=== PATIENT | female | born 1950 | race Caucasian/White ===

== ENCOUNTER 2023-06-11 13:44 | Emergency (ER) | payer MEDICARE, SELFPAY ==
[2023-06-11 13:52] VITALS: BP 126/51; PULSE 78; RESP 16; TEMP 36.5; O2SAT 97
--- NOTE | 2023-06-11 15:15 | ED.FEMALEGU ---
HPI - Female Genitourinary General Chief complaint: Urogenital-Female Stated complaint: Urinary Problem Time Seen by Provider: 06/11/23 15:10 Source: patient, RN notes reviewed and old records reviewed Mode of arrival: ambulatory Limitations: no limitations History of Present Illness HPI Narrative: 73-year-old female who presents to [facility] with complaints of UTI symptoms for the past 3 days which incldes urinary burning, frequency,urgency suprapubic pressure. and voiding in small amounts.Patient reports that she has been taking Uristat for her symptoms. Patient denies anyfevers, chills or sweates denies any nausea or vomiting or diarrhea, Patient reports no concern for STD exposure or vaginal discharge. MD elicited complaint: UTI Onset (ago): day(s) (3) Location of symptoms: suprapubic and urethra Severity: moderate Quality of pain: other (pressure) Vaginal discharge: none Treatment prior to arrival: other (Uristat) Related Data Home Medications Medication Instructions Recorded Confirmed alprazolam 0.25 mg tablet 0.25 mg PO QHS PRN Anxiety 06/11/23 06/11/23 apixaban 5 mg tablet (Eliquis) 5 mg PO BID 06/11/23 06/11/23 ezetimibe 10 mg tablet 10 mg PO DAILY 06/11/23 06/11/23 famotidine 20 mg tablet 20 mg PO QHS 06/11/23 06/11/23 levothyroxine 75 mcg tablet 75 mcg PO DAILY 06/11/23 06/11/23 rosuvastatin 10 mg tablet 10 mg PO DAILY 06/11/23 06/11/23 sotalol 80 mg tablet 40 mg PO BID 06/11/23 06/11/23 Allergies Allergy/AdvReac Type Severity Reaction Status Date / Time Penicillins Allergy Intermediate Rash Verified 06/11/23 14:36 Review of Systems Review of Systems: CONSTITUTIONAL: Denies fever, chills, or sweats. CARDIOVASCULAR: Denies chest pain, palpitations, or edema. RESPIRATORY: Denies cough or dyspnea. GASTROINTESTINAL: Reports suprapubic abdominal pressure, no nausea, vomiting, or diarrhea. GENITOURINARY: Reports dysuria, frequency, urgency. Denies flank pain or hematuria. voiding small amounts SKIN: Denies rash or itching. MUSCULOSKELETAL: Denies back pain or myalgia. Denies CVA tenderness NEUROLOGIC: Denies headache All systems reviewed & are unremarkable except as noted in HPI and below PMFSH Past Medical History Medical History (Updated 06/13/23 @ 13:16 by Kellen Burns NP) Anxiety Atrial fibrillation Breast cancer left Radiation and Tamoxifen COVID-19 Surgical History Surgical History (Updated 06/13/23 @ 13:10 by Kellen Burns NP) H/O: hysterectomy History of cholecystectomy History of removal of both ovaries Hx of cataract removal with insertion of prosthetic lens bilateral S/P bilateral breast reduction Social History Social History (Updated 06/13/23 @ 13:06 by Kellen Burns NP) Smoking status: Never smoker Alcohol intake: current Alcohol use details: rare Substance use type: does not use Living arrangements: with family Gender identity (if verbalized by the patient): Female Comments At time of signature, agree with nursing past medical, surgical, social and family history. There is no relevant family history pertinent to the presenting complaint Exam Narrative: GENERAL: Well-appearing, well-nourished, and in no acute distress. HEAD: Normocephalic, atraumatic. NECK: Supple..no lymphadenopathy CHEST: Clear to auscultation. No respiratory distress.SAO2 97% on room air HEART: Regular rate and rhythm. No murmur heard. Normal peripheral pulses. ABDOMEN: Soft, nontender, nondistended, normal active bowel sounds. No CVA tenderness, burning, voiding small amount EXTREMITIES: Normal range of motion. No edema. SKIN: Warm, dry, no rash. NEURO: No focal deficits. Alert and oriented x3. Course Course Emergency Course: Patient is aware of diagnosis, understands and agrees to treatment plan.? Anticipatory guidance given.? Patient agrees to follow-up as directed and is aware of reasons to seek care at the emergency department. Portions of this recor
== END 2023-06-11 15:30 | disposition home or self-care (01) ==
PROVIDERS: Emergency Provider Registered Nurse; PCP Internal Medicine
DX: N39.0 Urinary tract infection, site not specified (principal); I48.91 Unspecified atrial fibrillation; F41.9 Anxiety disorder, unspecified; Z85.3 Personal history of malignant neoplasm of breast; Z86.16 Personal history of COVID-19; Z92.3 Personal history of irradiation; Z96.1 Presence of intraocular lens; Z98.42 Cataract extraction status, left eye; Z98.41 Cataract extraction status, right eye
CPT/HCPCS: 81003; 87086; 99213; G0463